=== PATIENT | male | born 1990 | race Caucasian/White ===

== ENCOUNTER → 2016-04-07 | Outpatient (CLI) | payer OTHER ==
[~2016-04-07] MED LIST: GABA600T PO; INSU-277; K-PHTAB PO; KETOC2%T TOPICAL; LEVEMIR SQ; MAGN500T5 PO; NORT75CA PO; NOVOLOGP2 SQ; TRAZ100T4 PO; [UNRECOGNIZED DRUG - SUPPLY]; syringes for insulin SQ
[2016-04-07 14:03] LABS: HEMOGLOBIN A1a 1.7 %; HEMOGLOBIN A1b 1.1 %; HEMOGLOBIN Ao 82.2 %; HEMOGLOBIN LA1C 1.8 %; HEMOGLOBIN P3 4.6 %
== END ==
LOC: CLAB 13:24
PROVIDERS: ATTEND Physician Assistant Medical
DX: E10.9 Type 1 diabetes mellitus without complications (principal)
CPT/HCPCS: 36415; 83036

== ENCOUNTER → 2016-10-10 | Outpatient (CLI) | payer OTHER ==
[~2016-10-10] MED LIST changes: +GLUCTES27; -TRAZ100T4 PO; +TRAZ100T6 PO
[2016-10-10 12:10] LABS: AUTOMATED NEUTROPHIL # 3.4 TH/MM3 (1.8-7.7); BASOPHIL % 0.4 % (0.0-2.0); EOSINOPHIL # 0.3 TH/MM3 (0-0.4); EOSINOPHIL % 4.8 % (0.0-4.0); HEMATOCRIT 40.6 % (39.0-51.0); HEMO FLAGS DIFF FINAL; LYMPH % 28.5 % (9.0-44.0); LYMPHOCYTE # 1.7 TH/MM3 (1.0-4.8); MEAN CORPUSCULAR HEMOGLOBIN 30.5 PG (27.0-34.0); MEAN CORPUSCULAR HGB CONC 33.5 % (32.0-36.0); MONO % 9.8 % (0.0-8.0); NEUT % 56.5 % (16.0-70.0); PLATELET COUNT 246 TH/MM3 (150-450); RED BLOOD COUNT 4.47 MIL/MM3 (4.50-5.90); RED CELL DISTRIBUTION WIDTH 13.4 % (11.6-17.2); WHITE BLOOD COUNT 6.1 TH/MM3 (4.0-11.0)
[2016-10-10 12:42] LABS: HDL CHOLESTEROL 56.5 MG/DL (40.0-60.0)
== END ==
LOC: CLAB 11:41
PROVIDERS: ATTEND Family Medicine
DX: E10.9 Type 1 diabetes mellitus without complications (principal); E78.1 Pure hyperglyceridemia; G62.9 Polyneuropathy, unspecified
CPT/HCPCS: 36415; 80061; 84443; 85025

== ENCOUNTER 2018-02-10 13:30 | Inpatient (IN) ==
[2018-02-10] MEDS ORDERED: Sod Chloride 0.9% Inj 1,000 ML IV.SIG SCH (14:00)
[2018-02-10 14:11] LABS: VBG Base Excess -8.1 mmol/L (-2-2); VBG Blood Gas Oxygen Content 18.4 Vol % (9.0-17.0); VBG PCO2 22 mmHG (44-48); VBG PH 7.46 (7.360-7.400); VBG PO2 45 mmHG (35-40)
[2018-02-10] MEDS ORDERED: Famotidine PF Inj 20 MG/2 ML Vial IV.PUSH ONE (14:12)
--- NOTE | 2018-02-10 14:12 | ED ---
HPI General Chief complaint: Diabetic Stated complaint: Type 1 Diabetic/N/V/D/Vomiting Blood x2days Time Seen by Provider: 02/10/18 13:41 Source: patient and family Limitations: other History of Present Illness HPI narrative: Patient is a 27-year-old male, past medical history significant for type 1 diabetes, who presents with complaint of generalized ill feeling over the last several days with nausea, vomiting, cough, shortness of breath. He states that after several episodes of vomiting and there is now some streaks of blood in it. No chest pain. No fever. No recent trauma. Patient is not forthcoming with information and when asked questions continuously points to his family member in the room. Later in his ED stay he admitted to low abdominal pain with watery, nonbloody diarrhea over the last 3 days associated with the vomiting. He states it began after eating bengali food. Onset (ago): day(s) Radiation: non-radiation Severity: moderate Quality: aching Relieving factors: none Exacerbating factors: none Associated symptoms: Reports loss of appetite, malaise, nausea/vomiting, shortness of breath and weakness Treatments prior to arrival: Reports none Related Data Home Medications Medication Instructions Recorded Confirmed gabapentin 1,200 mg PO TID 02/10/18 02/10/18 insulin aspart U-100 [Novolog 20 unit SUBCUT QAM 02/10/18 02/10/18 Flexpen U-100 Insulin] insulin detemir U-100 [Levemir 25 unit SUBCUT QAM 02/10/18 02/10/18 U-100 Insulin] insulin detemir U-100 [Levemir 25 unit SUBCUT QPM 02/10/18 02/10/18 U-100 Insulin] Allergies Allergy/AdvReac Type Severity Reaction Status Date / Time No Known Allergies Allergy Verified 02/10/18 14:32 Review of Systems ROS: all other systems reviewed are negative [facility] Social History Social History Second Hand Smoke Exposure: No Smoking Status: Never smoker How Often Do You Have a Drink Containing Alcohol: Never Recent Travel in [facility] within the Last 8 Weeks: No Recent Out of Country Travel within the Last 8 Weeks: No Exam Narrative Exam Narrative: GENERAL: Ill-appearing male actively vomiting emesis with small streaks of blood. SKIN: Focused skin assessment warm/dry. HEAD: Atraumatic. Normocephalic. EYES: Pupils equal and round. No scleral icterus. No injection or drainage. ENT: No nasal bleeding or discharge. Mucous membranes pink and dry. NECK: Trachea midline. No JVD. CARDIOVASCULAR: Regular rate and rhythm. No murmur appreciated. Intact and equal peripheral pulses. RESPIRATORY: No accessory muscle use. Clear to auscultation. Breath sounds equal bilaterally. Tachypneic. GASTROINTESTINAL: Abdomen soft, slight tenderness throughout, nondistended. Hepatic and splenic margins not palpable. MUSCULOSKELETAL: No obvious deformities. No clubbing. No cyanosis. No edema. NEUROLOGICAL: Awake and alert. No obvious cranial nerve deficits. Motor grossly within normal limits. Normal speech. PSYCHIATRIC: Unable to assess Course Consultations Consultation #1: I spoke with Dr Prince, axle bearing polisher chemical operations and training, whom recommended we check a repeat lactate and if downtrending, call the hospitalists for admission. Time: 16:13 Initial Documented Vital Signs Blood Pressure 143/72 H 02/10/18 13:38 Last Documented Vital Signs Temperature 98.1 F 02/10/18 14:00 Pulse Rate 92 H 02/10/18 17:26 Respiratory Rate 20 02/10/18 17:26 Blood Pressure 96/57 L 02/10/18 17:26 Pulse Oximetry 98 02/10/18 16:30 Medical Decision Making MDM Narrative Medical decision making narrative: Patient is a 27 yom who presents with complaint of generalized ill feeling with nausea, vomiting and diarrhea. He appears ill and dry on arrival and was given multiple antiemetics and both an NS and an LR bolus. Labs reveal an anion gap metabolic acidosis with an elevated delta gap (concerning for non-gap acidosis). His pH on VBG was actually 7.455 indicating a component of alkalosis. Lactate is elevated at 4 and he was empirically given antibiotics after blood cultures were drawn. CT did not reveal an acute process. I initially spoke with Dr Prince, axle bearing polisher whom thought this could be managed by the hospitalist. I was then called by Dr Camarena, hospitalist chemical operations and training (whom had spoken to Dr Prince) whom agreed to the admission. Medical Screen Exam Complete: Yes Emergency Medical Condition: Yes Differential Diagnosis Differential Diagnosis: Differential diagnosis includes but is not limited to influenza, DKA, dehydration, acute kidney injury, pneumonia. Medical Records Medical records reviewed: Yes I reviewed the patient's medical records. Lab Data Result diagrams: 02/10/18 13:45 02/10/18 13:45 Lab Results 02/10/18 02/10/18 02/10/18 Range/Units 13:45 13:45 13:45 CBC w Diff Auto diff final WBC 7.5 (4.0-11.0) th/mm3 RBC 5.01 (4.50-5.90) mil/mm3 Hgb 15.3 (13.0-17.0) gm/dL Hct 45.4 (39.0-51.0) % MCV 90.7 (80.0-100.0) fL MCH 30.5 (27.0-34.0) pg MCHC 33.6 (32.0-36.0) % RDW 12.5 (11.6-17.2) % Plt Count 242 (150-450) th/mm3 MPV 9.2 (7.0-11.0) fL Neut % (Auto) 85.4 H (16.0-70.0) % Lymph % (Auto) 7.8 L (9.0-44.0) % Hart % (Auto) 6.2 (0.0-8.0) % Eos % (Auto) 0.0 (0.0-4.0) % Baso % (Auto) 0.6 (0.0-2.0) % Neut # (Auto) 6.4 (1.8-7.7) th/mm3 Lymph # (Auto) 0.6 L (1.0-4.8) th/mm3 Hart # (Auto) 0.5 (0.0-0.9) th/mm3 Eos # (Auto) 0.0 (0.0-0.4) th/mm3 Baso # (Auto) 0.0 (0.0-0.2) th/mm3 WBC Differential . Differential Comment . Puncture Site Patient Temperature VBG pH (7.360-7.400) VBG pCO2 (44-48) mmHG VBG pO2 (35-40) mmHG VBG HCO3 (22-26) mmol/L VBG O2 Saturation (70-76) % VBG O2 Content (9.0-17.0) Vol % VBG Base Excess (-2-2) mmol/L VBG Carboxyhemoglobin (0-4) % VBG Methemoglobin (0-2) % Hemoglobin (12.0-16.0) G/DL O2 Delivery Device Inspired O2 % Critical Value Sodium 132 L (136-145) meq/L Potassium 4.1 (3.5-5.1) meq/L Chloride 98 (98-107) meq/L Carbon Dioxide 15.0 L (21.0-32.0) meq/L Anion Gap 19 H (5-15) meq/L BUN 21 H (7-18) mg/dL Creatinine 1.20 (0.60-1.30) mg/dL Estimated GFR 72 L (>89) mL/min POC Glucose (68-110) mg/dl Random Glucose 424 H (74-106) mg/dL Lactic Acid 4.6 H* (0.4-2.0) mmol/L Calcium 8.6 (8.5-10.1) mg/dL Total Bilirubin 0.9 (0.2-1.0) mg/dL AST 27 (15-37) U/L ALT 29 (12-78) U/L Alkaline Phosphatase 87 (45-117) U/L Total Protein 7.6 (6.4-8.2) g/dL Albumin 4.4 (3.4-5.0) g/dL Beta-Hydroxybutyric Acd 3.25 H (0.00-0.39) mmol/L Ur Collection Type Urine Color (Yellw/Straw) Urine Clarity (Clear) Urine pH (5.0-8.5) Ur Specific [place] (1.002-1.035) Urine Protein (Neg-Trace) mg/dL Urine Glucose (UA) (Negative) mg/dL Urine Ketones (Negative) mg/dL Urine Occult Blood (Negative) Urine Nitrate (Negative) Urine Bilirubin (Negative) Urine Urobilinogen (Less than 2) mg/dL Ur Leukocyte Esterase (Negative) Urine WBC (0-5) /hpf Ur Squamous Epith Cells (0-5) /hpf Amorphous Sediment (None) /hpf Micro UA Comment Ur Microscopic Review Urine Culture Comments Urine Collection Time hours 02/10/18 02/10/18 02/10/18 Range/Units 13:56 14:05 14:48 CBC w Diff WBC (4.0-11.0) th/mm3 RBC (4.50-5.90) mil/mm3 Hgb (13.0-17.0) gm/dL Hct (39.0-51.0) % MCV (80.0-100.0) fL MCH (27.0-34.0) pg MCHC (32.0-36.0) % RDW (11.6-17.2) % Plt Count (150-450) th/mm3 MPV (7.0-11.0) fL Neut % (Auto) (16.0-70.0) % Lymph % (Auto) (9.0-44.0) % Hart % (Auto) (0.0-8.0) % Eos % (Auto) (0.0-4.0) % Baso % (Auto) (0.0-2.0) % Neut # (Auto) (1.8-7.7) th/mm3 Lymph # (Auto) (1.0-4.8) th/mm3 Hart # (Auto) (0.0-0.9) th/mm3 Eos # (Auto) (0.0-0.4) th/mm3 Baso # (Auto) (0.0-0.2) th/mm3 WBC Differential Differential Comment Puncture Site Iv Patient Temperature 98.6 VBG pH 7.46 H (7.360-7.400) VBG pCO2 22 L (44-48) mmHG VBG pO2 45 H (35-40) mmHG VBG HCO3 15 L* (22-26) mmol/L VBG O2 Saturation 83 H (70-76) % VBG O2 Content 18.4 H (9.0-17.0) Vol % VBG Base Excess -8.1 L (-2-2) mmol/L VBG Carboxyhemoglobin 1.5 (0-4) % VBG Methemoglobin 1.2 (0-2) % Hemoglobin 15.8 (12.0-16.0) G/DL O2 Delivery Device Room air Inspired O2 21 % Critical Value Yes Sodium (136-145) meq/L Potassium (3.5-5.1) meq/L Chloride (98-107) meq/L Carbon Dioxide (21.0-32.0) meq/L Anion Gap (5-15) meq/L BUN (7-18) mg/dL Creatinine (0.60-1.30) mg/dL Estimated GFR (>89) mL/min POC Glucose 437 H 433 H (68-110) mg/dl Random Glucose (74-106) mg/dL Lactic Acid (0.4-2.0) mmol/L Calcium (8.5-10.1) mg/dL Total Bilirubin (0.2-1.0) mg/dL AST (15-37) U/L ALT (12-78) U/L Alkaline Phosphatase (45-117) U/L Total Protein (6.4-8.2) g/dL Albumin (3.4-5.0) g/dL Beta-Hydroxybutyric Acd (0.00-0.39) mmol/L Ur Collection Type Urine Color (Yellw/Straw) Urine Clarity (Clear) Urine pH (5.0-8.5) Ur Specific [place] (1.002-1.035) Urine Protein (Neg-Trace) mg/dL Urine Glucose (UA) (Negative) mg/dL Urine Ketones (Negative) mg/dL Urine Occult Blood (Negative) Urine Nitrate (Negative) Urine Bilirubin (Negative) Urine Urobilinogen (Less than 2) mg/dL Ur Leukocyte Esterase (Negative) Urine WBC (0-5) /hpf Ur Squamous Epith Cells (0-5) /hpf Amorphous Sediment (None) /hpf Micro UA Comment Ur Microscopic Review Urine Culture Comments Urine Collection Time hours 02/10/18 02/10/18 02/10/18 Range/Units 14:51 15:55 16:25 CBC w Diff WBC (4.0-11.0) th/mm3 RBC (4.50-5.90) mil/mm3 Hgb (13.0-17.0) gm/dL Hct (39.0-51.0) % MCV (80.0-100.0) fL MCH (27.0-34.0) pg MCHC (32.0-36.0) % RDW (11.6-17.2) % Plt Count (150-450) th/mm3 MPV (7.0-11.0) fL Neut % (Auto) (16.0-70.0) % Lymph % (Auto) (9.0-44.0) % Hart % (Auto) (0.0-8.0) % Eos % (Auto) (0.0-4.0) % Baso % (Auto) (0.0-2.0) % Neut # (Auto) (1.8-7.7) th/mm3 Lymph # (Auto) (1.0-4.8) th/mm3 Hart # (Auto) (0.0-0.9) th/mm3 Eos # (Auto) (0.0-0.4) th/mm3 Baso # (Auto) (0.0-0.2) th/mm3 WBC Differential Differential Comment Puncture Site Patient Temperature VBG pH (7.360-7.400) VBG pCO2 (44-48) mmHG VBG pO2 (35-40) mmHG VBG HCO3 (22-26) mmol/L VBG O2 Saturation (70-76) % VBG O2 Content (9.0-17.0) Vol % VBG Base Excess (-2-2) mmol/L VBG Carboxyhemoglobin (0-4) % VBG Methemoglobin (0-2) % Hemoglobin (12.0-16.0) G/DL O2 Delivery Device Inspired O2 % Critical Value Sodium (136-145) meq/L Potassium (3.5-5.1) meq/L Chloride (98-107) meq/L Carbon Dioxide (21.0-32.0) meq/L Anion Gap (5-15) meq/L BUN (7-18) mg/dL Creatinine (0.60-1.30) mg/dL Estimated GFR (>89) mL/min POC Glucose 484 H* (68-110) mg/dl Random Glucose (74-106) mg/dL Lactic Acid 4.5 H* (0.4-2.0) mmol/L Calcium (8.5-10.1) mg/dL Total Bilirubin (0.2-1.0) mg/dL AST (15-37) U/L ALT (12-78) U/L Alkaline Phosphatase (45-117) U/L Total Protein (6.4-8.2) g/dL Albumin (3.4-5.0) g/dL Beta-Hydroxybutyric Acd (0.00-0.39) mmol/L Ur Collection Type Clean catch Urine Color Straw (Yellw/Straw) Urine Clarity Clear (Clear) Urine pH 6.0 (5.0-8.5) Ur Specific [place] 1.010 (1.002-1.035) Urine Protein Negative (Neg-Trace) mg/dL Urine Glucose (UA) 1000 or greater H (Negative) mg/dL Urine Ketones 80 or greater H (Negative) mg/dL Urine Occult Blood Negative (Negative) Urine Nitrate Negative (Negative) Urine Bilirubin Negative (Negative) Urine Urobilinogen 0.2 (Less than 2) mg/dL Ur Leukocyte Esterase Negative (Negative) Urine WBC 0-5 (0-5) /hpf Ur Squamous Epith Cells 0-5 (0-5) /hpf Amorphous Sediment Few H (None) /hpf Micro UA Comment Culture not ind Ur Microscopic Review Microscopic reviewed Urine Culture Comments Culture not ind Urine Collection Time 1450 hours 02/10/18 02/10/18 02/10/18 Range/Units 16:59 17:44 18:49 CBC w Diff WBC (4.0-11.0) th/mm3 RBC (4.50-5.90) mil/mm3 Hgb (13.0-17.0) gm/dL Hct (39.0-51.0) % MCV (80.0-100.0) fL MCH (27.0-34.0) pg MCHC (32.0-36.0) % RDW (11.6-17.2) % Plt Count (150-450) th/mm3 MPV (7.0-11.0) fL Neut % (Auto) (16.0-70.0) % Lymph % (Auto) (9.0-44.0) % Hart % (Auto) (0.0-8.0) % Eos % (Auto) (0.0-4.0) % Baso % (Auto) (0.0-2.0) % Neut # (Auto) (1.8-7.7) th/mm3 Lymph # (Auto) (1.0-4.8) th/mm3 Hart # (Auto) (0.0-0.9) th/mm3 Eos # (Auto) (0.0-0.4) th/mm3 Baso # (Auto) (0.0-0.2) th/mm3 WBC Differential Differential Comment Puncture Site Patient Temperature VBG pH (7.360-7.400) VBG pCO2 (44-48) mmHG VBG pO2 (35-40) mmHG VBG HCO3 (22-26) mmol/L VBG O2 Saturation (70-76) % VBG O2 Content (9.0-17.0) Vol % VBG Base Excess (-2-2) mmol/L VBG Carboxyhemoglobin (0-4) % VBG Methemoglobin (0-2) % Hemoglobin (12.0-16.0) G/DL O2 Delivery Device Inspired O2 % Critical Value Sodium (136-145) meq/L Potassium (3.5-5.1) meq/L Chloride (98-107) meq/L Carbon Dioxide (21.0-32.0) meq/L Anion Gap (5-15) meq/L BUN (7-18) mg/dL Creatinine (0.60-1.30) mg/dL Estimated GFR (>89) mL/min POC Glucose 299 H 265 H 238 H (68-110) mg/dl Random Glucose (74-106) mg/dL Lactic Acid (0.4-2.0) mmol/L Calcium (8.5-10.1) mg/dL Total Bilirubin (0.2-1.0) mg/dL AST (15-37) U/L ALT (12-78) U/L Alkaline Phosphatase (45-117) U/L Total Protein (6.4-8.2) g/dL Albumin (3.4-5.0) g/dL Beta-Hydroxybutyric Acd (0.00-0.39) mmol/L Ur Collection Type Urine Color (Yellw/Straw) Urine Clarity (Clear) Urine pH (5.0-8.5) Ur Specific [place] (1.002-1.035) Urine Protein (Neg-Trace) mg/dL Urine Glucose (UA) (Negative) mg/dL Urine Ketones (Negative) mg/dL Urine Occult Blood (Negative) Urine Nitrate (Negative) Urine Bilirubin (Negative) Urine Urobilinogen (Less than 2) mg/dL Ur Leukocyte Esterase (Negative) Urine WBC (0-5) /hpf Ur Squamous Epith Cells (0-5) /hpf Amorphous Sediment (None) /hpf Micro UA Comment Ur Microscopic Review Urine Culture Comments Urine Collection Time hours Imaging Data Attestation: I personally reviewed and interpreted this imaging study as follows : My impression: No acute cardiopulmonary process. Radiologist's impression: Chest X-Ray 02/10/18 13:51 CONCLUSION: No acute cardiopulmonary process. Abdomen/Pelvis CT 02/10/18 15:02 CONCLUSION: Hepatic steatosis. ECG Data EKG Prior to Arrival: No Attestation: I personally reviewed and interpreted this ECG as follows: (Sinus rhythm at a rate of [address] or T wave changes. Normal QT interval.) Discharge Plan Discharge Disposition Patient Disposition: ED Admit(ED Internal Use Only) Discharge Condition Condition: Serious Discharge Order Discharge Orders: ED Use Only Admit Order (Routine); Ordered 02/10/18 Ordered By: Tia Solis Discharge Details Diagnosis: DKA (diabetic ketoacidoses), Acute dehydration Physicians Team ED Provider: Tia Solis Primary Care Provider: Primary Care Akanksha Judge Attending Provider: Sheri Menezes Status ED Status: Left Department Discharge Information Discharge Date/Time: 02/10/18 17:50
[2018-02-10 14:21] LABS: Baso % (Auto) 0.6 % (0.0-2.0); Hematocrit 45.4 % (39.0-51.0); Hemoglobin 15.3 gm/dL (13.0-17.0); Lymph # (Auto) 0.6 th/mm3 (1.0-4.8); Lymph % (Auto) 7.8 % (9.0-44.0); Mean Corpuscular HGB Conc 33.6 % (32.0-36.0); Mean Corpuscular Hemoglobin 30.5 pg (27.0-34.0); Mean Corpuscular Volume 90.7 fL (80.0-100.0); Mean Platelet Volume 9.2 fL (7.0-11.0); Mono # (Auto) 0.5 th/mm3 (0.0-0.9); Mono % (Auto) 6.2 % (0.0-8.0); Neut # (Auto) 6.4 th/mm3 (1.8-7.7); Neut % (Auto) 85.4 % (16.0-70.0); Platelet Count 242 th/mm3 (150-450); Red Blood Count 5.01 mil/mm3 (4.50-5.90); Red Cell Distribution Width 12.5 % (11.6-17.2); White Blood Count 7.5 th/mm3 (4.0-11.0)
[2018-02-10 14:31] LABS: Chloride 98 meq/L (98-107); Potassium 4.1 meq/L (3.5-5.1); Sodium 132 meq/L (136-145)
[2018-02-10 14:34] LABS: Calcium 8.6 mg/dL (8.5-10.1)
[2018-02-10 14:35] LABS: Albumin 4.4 g/dL (3.4-5.0); Anion Gap 19 meq/L (5-15)
--- NOTE | 2018-02-10 14:54 | XR ---
EXAM DATE: 02/10/2018 2:51 PM EST AGE/SEX: 27 years / Male INDICATIONS: Cough, vomiting CLINICAL DATA: This is the patient's initial encounter. Patient reports that signs and symptoms have been present for 2 days and indicates a pain score of 0/10. MEDICAL/SURGICAL HISTORY: Diabetes mellitus type I. None. [place] [facility] [place]. . FINDINGS: A single AP view of the chest demonstrates the lungs to be symmetrically aerated without evidence of mass, infiltrate or effusion. The cardiomediastinal contours are unremarkable. Osseous structures a re intact. CONCLUSION: No acute cardiopulmonary process. Electronically signed by: Arnoldo Cuevas MD 02/10/2018 2:53 PM EST
[2018-02-10 14:55] LABS: Alanine Aminotransferase 29 U/L (12-78); Alkaline Phosphatase 87 U/L (45-117); Aspartate Aminotransferase 27 U/L (15-37); Beta Hydroxybutyric Acid 3.25 mmol/L (0.00-0.39); Blood Urea Nitrogen 21 mg/dL (7-18); Glomerular Filtration Rate 72 mL/min (>89); Glucose,Random 424 mg/dL (74-106); Total Protein 7.6 g/dL (6.4-8.2)
[2018-02-10 15:00] LABS: Bilirubin,Urine Negative (Negative); Clarity,Urine Clear (Clear); Leukocyte Esterase,Urine Negative (Negative); Nitrite,Urine Negative (Negative); Urobilinogen,Urine 0.2 mg/dL (Less than 2)
[2018-02-10 15:02] LABS: Color,Urine Straw (Yellw/Straw)
[2018-02-10] MEDS ORDERED: Potassium Chlor 20 mEq Premix 20 MEQ/100 ML PIGGYBACK IV.SIG PRN ×5 (15:03)
[2018-02-10] MEDS ORDERED: Potassium Chlor 40 mEq Premix 40 MEQ/100 ML PIGGYBACK IV.SIG PRN ×2 (15:03)
[2018-02-10] MEDS ORDERED: Insulin Regular (For Infusion) 100 UNIT in Sodium Chlor 0.9% Inj 99 ML IV.CONT PRN (15:03)
[2018-02-10] MEDS ORDERED: Sodium Phosphate Inj 15 MMOL in Sodium Chlor 0.9% Inj 100 ML IV.SIG PRN (15:03)
[2018-02-10 15:13] LABS: Collection Time,Urine 1450 hours
[2018-02-10] MEDS ORDERED: Piperacil/Tazo 4.5 GM Premix 4.5 GM/100 ML BAG IV.SIG ONE (15:13)
[2018-02-10] MEDS ORDERED: Vancomycin Inj 1,000 MG in Sodium Chlor 0.9% Inj 250 ML IV.SIG ONE (15:13)
[2018-02-10 15:14] LABS: Amorphous Sediment,Urine Few /hpf; Squamous Epithelial Cell,Urine 0-5 /hpf (0-5); WBC,Urine 0-5 /hpf (0-5)
--- NOTE | 2018-02-10 15:50 | CT ---
EXAM DATE: 02/10/2018 3:43 PM EST AGE/SEX: 27 years / Male INDICATIONS: Vomiting and non specific abdominal pain for three days. CLINICAL DATA: This is the patient's initial encounter. Patient reports that signs and symptoms have been present for 3 days and indicates a pain score of 10/10. MEDICAL/SURGICAL HISTORY: Diabetes mellitus type I. None. ORAL CONTRAST: No oral contrast ingested. RADIATION DOSE: 7.21 CTDI (mGy) COMPARISON: No prior exams available for comparison. TECHNIQUE: Multiple contiguous axial images were obtained through the abdomen and pelvis following b olus infusion of 95 ml Omnipaque 350 (iohexol) nonionic water-soluble contrast as a single exam dos e. No oral contrast ingested. Using automated exposure control and adjustment of the mA and/or kV ac cording to patient size, radiation dose was kept as low as reasonably achievable to obtain optimal di agnostic quality images. DICOM format image data is available electronically for review and comparis on. FINDINGS: Lower Lungs: The visualized lower lungs are clear. Liver: There is diffuse decreased attenuation to the liver. No focal hepatic lesions are seen. The ga llbladder is unremarkable. Spleen: Homogeneous density without enlargement. Pancreas: Unremarkable without mass or calcification. Kidneys: Normal in size and shape. No evidence of mass or hydronephrosis. Adrenal Glands: Unremarkable. Aorta: The aorta and proximal iliac vessels are grossly unremarkable without aneurysmal dilation. Bowel/Mesentery: The bowel loops are grossly unremarkable. The cecum and sigmoid colon have a normal configuration. Appears to be the appendix is identified and appears normal. Abdominal Wall: Intact. Retroperitoneum: No evidence of adenopathy in the retrocrural, para-aortic, or deep pelvic regions. Bladder: Contours are smooth. Reproductive Organs: No abnormal masses or calcifications seen. Inguinal: The inguinal region is unremarkable without evidence of adenopathy. Bony Structures: Unremarkable. CONCLUSION: Hepatic steatosis. Electronically signed by: Arnoldo Cuevas MD 02/10/2018 3:49 PM EST
[2018-02-10] MEDS: Potassium Chlor 20 mEq Premix 20 MEQ/100 ML PIGGYBACK IV.SIG PRN ×2 (16:00→18:21)
[2018-02-10] MEDS: Sod Chloride 0.9% Inj 1,000 ML IV.CONT SCH ×2 (16:15→20:38)
[2018-02-10] MEDS ORDERED: Insulin Human-R 100 UNIT/100ML 100 UNIT/100 ML BAG IV.CONT ONE (16:17)
[2018-02-10] MEDS ORDERED: DC previous DKA orders (HMC 1917) OTHER ONE ×2 (16:17→20:40)
[2018-02-10] MEDS ORDERED: DC Insulin drip 2 hrs post basal insulin dose OTHER ONE ×2 (16:17→20:40)
[2018-02-10] MEDS ORDERED: Bisacodyl 10 MG Supp RECTAL PRN (16:17)
[2018-02-10] MEDS ORDERED: Acetaminophen 325 MG Tablet PO PRN (16:17)
[2018-02-10] MEDS ORDERED: Dextrose 50% in Water 50 ML Vial IV.PUSH PRN ×2 (16:17→20:40)
[2018-02-10] MEDS ORDERED: Heparin - SQ 10,000 UNITS/ML Vial SQ SCH (16:30)
[2018-02-10] MEDS: Morphine Sulfate Inj 2 MG/ML Vial IV.PUSH PRN ×2 (17:11→21:43)
[2018-02-10] MEDS: Dextrose 5%/NaCl 0.45% Inj 1,000 ML IV.CONT SCH (17:20)
--- NOTE | 2018-02-10 17:36 | P.HPIM ---
History of Present Illness Primary Care Physician: No Primary Care Physician Chief Complaint: vomiting History of Present Illness: 27-year-old insulin-dependent diabetic presents with intractable nausea vomiting for 3 days diarrhea. Patient states he ate something bad on Sunday developed diarrhea and had nausea and vomiting, he was not able to take his insulin or eat or drink hold down any liquids, he denies any fever chills or other illness. He states today he was vomiting so much that he started to vomit blood, he is complaining of left lower abdominal pain, cramping, intermittent, moderate severe, denies any melena or blood in stools. He was found to be in DKA in the emergency room with blood sugar over 400, bicarb of 15 and anion gap of 19. He is not even able to hold down clear liquids. Prior to this he has been doing very well controlling his sugars without frequent hospitalizations for DKA, normally per his mother. PMhx: Insulin-dependent diabetes, cataracts, diabetic peripheral neuropathy PSXhx: Cataracts SOChx: Denies tobacco, denies alcohol, admits to daily THC use FAMhx: Negative for premature diabetes stroke DC or cancer Inpatient Certification Inpatient Certification: I certify that the inpatient services were ordered in accordance with Medicare regulations governing the order. This includes certification that hospital inpatient services are reasonable and necessary and in the case of services not specified as inpatient-only under 42 CFR 419.22(n), that they are appropriately provided as inpatient services in accordance to with the 2-midnight benchmark under 43 CFR 412.3(e) Estimated Total Length of Stay (Days): 3 Plans for Post Hospital Care: Home Review of Systems Review of Systems: all other systems reviewed are negative [facility] Social History Social History Second Hand Smoke Exposure: No Smoking Status: Never smoker How Often Do You Have a Drink Containing Alcohol: Never Recent Travel in [place] within the Last 8 Weeks: No Recent Out of Country Travel within the Last 8 Weeks: No Substance Abuse Detail Marijuana: Substance Use Status: Active Route Used 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 Reason for Use: Calm Down Immunization History Tetanus Immunization: Unsure Medications and Allergies Allergies Allergy/AdvReac Type Severity Reaction Status Date / Time No Known Allergies Allergy Verified 02/10/18 14:32 Home Medications Medication Instructions Recorded Confirmed Type gabapentin 1,200 mg PO TID 02/10/18 02/10/18 History insulin aspart U-100 [Novolog 20 unit SUBCUT QAM 02/10/18 02/10/18 History Flexpen U-100 Insulin] insulin detemir U-100 [Levemir 25 unit SUBCUT QAM 02/10/18 02/10/18 History U-100 Insulin] insulin detemir U-100 [Levemir 25 unit SUBCUT QPM 02/10/18 02/10/18 History U-100 Insulin] Active Medications: Active Medications Acetaminophen (Tylenol) 650 mg PO Q6H PRN PRN Reason: PAIN 1-10 AND/OR FEVER >101F Al Hydroxide/Mg Hydroxide (Milk Of Mary Ellen Salinas) 30 ml PO Q12H PRN PRN Reason: Mild Constipation Albuterol (Duoneb Neb (Prn)) 1 ampul NEB Q2HR NEB PRN PRN Reason: WHEEZING Bisacodyl (Dulcolax Supp) 10 mg RECTAL DAILY PRN PRN Reason: SEVERE CONSITIPATION Chlorhexidine Gluconate (Chlorhexidine 2% Cloth) 3 pack TOPICAL DAILY@0400 REPLACED BY [facility] Stop: 02/16/18 03:59 Chlorhexidine Gluconate (Chlorhexidine 2% Cloth) 3 pack TOPICAL DAILY@0400 PRN PRN Reason: Extra cloth needed Stop: 02/16/18 03:59 Dextrose (D50w Vial) 50 ml IV.PUSH UNSCH PRN PRN Reason: PER HYPOGLYCEMIA PROTOCOL Dextrose (D50w Vial) 50 ml IV.PUSH UNSCH PRN PRN Reason: PER HYPOGLYCEMIA PROTOCOL Glucagon (Glucagon Inj) 1 mg OTHER PRN PRN PRN Reason: for Hypoglycemia Protocol Heparin Sodium (Porcine) (Heparin Inj) 5,000 units SQ Q12H REPLACED BY [facility] Last Admin: 02/10/18 16:56 Dose: 5,000 units Dextrose/Sodium Chloride (D5w/Normal Saline Inj) 1,000 mls @ 200 mls/hr IV.CONT .Q5H REPLACED BY [facility] Insulin Human Regular 100 unit (/ Sodium Chloride) 100 mls @ 8 mls/hr IV.CONT TITRATE PRN; Protocol PRN Reason: See protocol Potassium Chloride (Kcl 40 Meq Premix Inj) 40 meq in 100 mls @ 100 mls/hr IV.SIG Q1H PRN PRN Reason: for Initial K+ ONLY < 3.5 Potassium Chloride (Kcl 40 Meq Premix Inj) 40 meq in 100 mls @ 50 mls/hr IV.SIG Q2H PRN PRN Reason: for Subsequent K+ < 3.5 Potassium Chloride (Kcl 20 Meq Premix Inj) 20 meq in 100 mls @ 100 mls/hr IV.SIG Q1H PRN PRN Reason: for K+ 3.5 to 4.4 Last Admin: 02/10/18 16:13 Dose: 100 mls/hr Potassium Chloride (Kcl 20 Meq Premix Inj) 20 meq in 100 mls @ 100 mls/hr IV.SIG Q1H PRN PRN Reason: for K+ 4.5 to 5 Potassium Chloride (Kcl 20 Meq Premix Inj) 20 meq in 100 mls @ 50 mls/hr IV.SIG Q2H PRN PRN Reason: for Initial K+ ONLY < 3.5 Potassium Chloride (Kcl 20 Meq Premix Inj) 20 meq in 100 mls @ 50 mls/hr IV.SIG Q2H PRN PRN Reason: for Subsequent K+ < 3.5 Potassium Chloride (Kcl 20 Meq Premix Inj) 20 meq in 100 mls @ 50 mls/hr IV.SIG Q2H PRN PRN Reason: for K+ 4.5 to 5 Sodium Phosphate 15 mmol/ (Sodium Chloride) 105 mls @ 25 mls/hr IV.SIG UNSCH PRN PRN Reason: for Phosphate Level < 1.0 Sodium Chloride (Ns Inj) 1,000 mls @ 250 mls/hr IV.CONT .Q4H [facility] Last Admin: 02/10/18 16:15 Dose: 250 mls/hr Potassium Chloride (Kcl 20 Meq Premix Inj) 20 meq in 100 mls @ 50 mls/hr IV.SIG Q2H PRN PRN Reason: for K+ 3.5 to 4.4 Dextrose/Sodium Chloride (D5w/1/2 Ns Inj) 1,000 mls @ 75 mls/hr IV.CONT .[id number] [facility] Lactulose (Lactulose Liq) 30 ml PO DAILY PRN PRN Reason: SEVERE CONSITIPATION Morphine Sulfate (Morphine Inj) 1 mg IV.PUSH Q4H PRN PRN Reason: PAIN SCALE 6 TO 10 Last Admin: 02/10/18 17:11 Dose: 1 mg Ondansetron HCl (Zofran Inj) 4 mg IV.PUSH Q6H PRN PRN Reason: NAUSEA OR VOMITING Pantoprazole Sodium (Protonix Inj) 40 mg IV.PUSH Q12H [facility] Senna/Docusate Sodium (Xochitl-Colace) 1 tab PO BID [facility] Sennosides (Senokot) 17.2 mg PO Q12H PRN PRN Reason: Moderate Constipation Sodium Bicarbonate (Sodium Bicarbonate 8.4% Inj) 50 meq IV.PUSH UNSCH PRN PRN Reason: for pH 6.9 to 7.0 Sodium Bicarbonate (Sodium Bicarbonate 8.4% Inj) 100 meq IV.PUSH UNSCH PRN PRN Reason: for pH less than 6.9 Sodium Chloride (Ns Flush) 2 ml IV.FLUSH PRN PRN PRN Reason: FLUSH AFTER USING IV ACCESS Sodium Chloride (Ns Flush) 2 ml IV.FLUSH BID [place] Sodium Chloride (Ns Flush) 2 ml IV.FLUSH PRN PRN PRN Reason: FLUSH AFTER USING IV ACCESS Physical Exam Vital signs: Last Vital Signs Temp 98.1 F 02/10/18 14:00 Pulse 90 02/10/18 16:30 Resp 22 02/10/18 16:30 BP 137/60 02/10/18 16:30 Pulse Ox 98 02/10/18 16:30 Intake & Output 02/08/18 02/09/18 02/10/18 02/11/18 06:59 06:59 06:59 06:59 Intake Total 2100 / 2100 Output Total 1450 / 1450 Balance 650 / 650 Weight 81.5 kg Narrative: GEN thin well-developed well-nourished 27-year-old white male awake alert oriented to person time and place, pleasant in no acute distress but very anxious HEENT normocephalic atraumatic, Pupils postop , sclerae anicteric, extraocular motion intact, mucosa is dry without thrush, posterior pharynx clear without exudate no gum lip dental lesions noted NECK supple no JVD trachea midline thyroid smooth not enlarged ANT CHEST WALL without mass or tenderness to palpation HEART S1-S2 regular without murmur gallops or clicks, tachycardic LUNGS clear to auscultation without wheeze rales or rhonchi , full symmetric expansion BACK exam is no CVA tenderness or mass ABDOMEN soft nondistended positive bowel sounds no guarding rebound rigidity moderate tender bilateral lower quadrant greater on the left LYMPH NODES no cervical, axillary or inguinal adenopathy noted EXTREMITIES no clubbing cyanosis or significant edema, peripheral pulses palpable +2 tender to palpation, no calf tenderness NEUROLOGIC cranial nerves II through XII appear grossly intact, moving extremities with full symmetric strength, no clonus rigidity noted SKIN warm and dry with decreased turgor, no other rash or sores noted, no mottling, warm to touch Results Labs CBC & Chem 7: 02/10/18 13:45 02/10/18 13:45 Imaging Impressions Chest X-Ray 02/10/18 13:51 CONCLUSION: No acute cardiopulmonary process. Abdomen/Pelvis CT 02/10/18 15:02 CONCLUSION: Hepatic steatosis. Caprini VTE Risk Assessment Caprini VTE Risk Assessment: Moderate/High Risk (score >= 2) Caprini Risk Assessment Model: Point Value = 1 Point Value = 2 Point Value = 3 Point Value = 5 Age 41-60 Minor surgery BMI > 25 kg/m2 Swollen legs Varicose veins or History of unexplained or recurrent spontaneous Oral contraceptives or hormone replacement Sepsis (< 1 month) Serious lung disease, including pneumonia (< 1 month) Abnormal pulmonary function Acute myocardial infarction Congestive heart failure (< 1 month) History of inflammatory bowel disease Medical patient at bed rest Age 61-74 Arthroscopic surgery Major open surgery (> 45 min) Laparoscopic surgery (> 45 min) Malignancy Confined to bed (> 72 hours) Immobilizing plaster cast Central venous access Age >= 75 History of VTE Family history of VTE Factor V Leiden Prothrombin [id number] Lupus anticoagulant Anticardiolipin antibodies Elevated serum homocysteine Heparin-induced thrombocytopenia Other congenital or acquired thrombophilia Stroke (< 1 month) Elective arthroplasty Hip, pelvis, or leg fracture Acute spinal cord injury (< 1 month) Prophylaxis Regimen: Total Risk Factor Score Risk Level Prophylaxis Regimen 0-1 Low Early ambulation 2 Moderate Order ONE of the following: *Sequential Compression Device (SCD) *Heparin 5000 units SQ BID 3-4 Higher Order ONE of the following medications: *Heparin 5000 units SQ TID *Enoxaparin/Lovenox 40 mg SQ daily (WT < 150 kg, CrCl > 30 mL/min) *Enoxaparin/Lovenox 30 mg SQ daily (WT < 150 kg, CrCl > 10-29 mL/min) *Enoxaparin/Lovenox 30 mg SQ BID (WT < 150 kg, CrCl > 30 mL/min) AND/OR *Sequential Compression Device (SCD) 5 or more Highest Order ONE of the following medications: *Heparin 5000 units SQ TID (Preferred with Epidurals) *Enoxaparin/Lovenox 40 mg SQ daily (WT < 150 kg, CrCl > 30 mL/min) *Enoxaparin/Lovenox 30 mg SQ daily (WT < 150 kg, CrCl > 10-29 mL/min) *Enoxaparin/Lovenox 30 mg SQ BID (WT < 150 kg, CrCl > 30 mL/min) AND *Sequential Compression Device (SCD) Assessment and Plan Plan DKA - w lactic acidosos from severe dehydration - cont ivf, insulin gtt, icu monitoring, npo for now HEMATEMESIS - likely due to intractable nv, iv protonix, npo, monitor hh ACUTE GASTROENTERITIS - infecious/viral vs [place] - no evidence of infection hold abx, cont supportive care, antiemetics, fluids , stool studies if diarrhea persists, ct scan normal, iv protonix. IDDM - insulin gtt, diet when DM PERIPHERAL NEUROPATHY - resume home neurontin when stable dvt prophylaxis - scd, dispo - home 1-2 days pending clinical course.
[2018-02-10] MEDS: Pantoprazole Inj 40 MG Vial IV.PUSH SCH (18:10)
[2018-02-10] MEDS: Dextrose 5%/NaCl 0.9% Inj 1,000 ML IV.CONT SCH ×2 (19:54→22:12)
[2018-02-10 20:05] LABS: Hematocrit 41.3 % (39.0-51.0); Hemoglobin 14.2 gm/dL (13.0-17.0)
[2018-02-10 20:20] LABS: Calcium 7.9 mg/dL (8.5-10.1); Carbon Dioxide 20.9 meq/L (21.0-32.0); Potassium 4.2 meq/L (3.5-5.1)
[2018-02-10] MEDS ORDERED: Insulin Detemir Inj 1,000 UNIT/10 ML Vial SQ ONE (20:48)
[2018-02-10] MEDS ORDERED: Famotidine 20 MG Tablet PO SCH (21:00)
[2018-02-10] MEDS: Senna/Docusate Sodium 8.6/50 MG Tablet PO SCH (22:16)
[2018-02-11] MEDS: Insulin NovoLOG Aspart Correctional Sugar Inj SQ SCH ×3 (00:07→12:19)
[2018-02-11] MEDS: Morphine Sulfate Inj 2 MG/ML Vial IV.PUSH PRN ×2 (02:00→09:43)
[2018-02-11 02:26] LABS: Potassium 3.6 meq/L (3.5-5.1)
[2018-02-11 02:29] LABS: Calcium 7.6 mg/dL (8.5-10.1)
[2018-02-11] MEDS ORDERED: Chlorhexidine Gluconate 2% 1 Pack (2 Cloths) TOPICAL PRN (04:00)
[2018-02-11] MEDS ORDERED: Chlorhexidine Gluconate 2% 1 Pack (2 Cloths) TOPICAL SCH (04:00)
[2018-02-11 04:45] LABS: Baso % (Auto) 0.2 % (0.0-2.0); Hematocrit 40.3 % (39.0-51.0); Hemoglobin 13.8 gm/dL (13.0-17.0); Lymph # (Auto) 1.6 th/mm3 (1.0-4.8); Lymph % (Auto) 14.2 % (9.0-44.0); Mean Corpuscular HGB Conc 34.2 % (32.0-36.0); Mean Corpuscular Hemoglobin 31.1 pg (27.0-34.0); Mean Corpuscular Volume 91.1 fL (80.0-100.0); Mean Platelet Volume 8.1 fL (7.0-11.0); Mono # (Auto) 1.4 th/mm3 (0.0-0.9); Mono % (Auto) 12.6 % (0.0-8.0); Neut # (Auto) 8.4 th/mm3 (1.8-7.7); Platelet Count 196 th/mm3 (150-450); Red Blood Count 4.43 mil/mm3 (4.50-5.90); Red Cell Distribution Width 12.6 % (11.6-17.2); White Blood Count 11.4 th/mm3 (4.0-11.0)
[2018-02-11] MEDS: Pantoprazole Inj 40 MG Vial IV.PUSH SCH (06:10)
[2018-02-11] MEDS: Dextrose 5%/NaCl 0.45% Inj 1,000 ML IV.CONT SCH (06:43)
[2018-02-11] MEDS ORDERED: Insulin Detemir Inj 1,000 UNIT/10 ML Vial SQ SCH ×4 (09:00→18:00)
[2018-02-11 09:03] LABS: Chloride 107 meq/L (98-107); Potassium 3.4 meq/L (3.5-5.1); Sodium 138 meq/L (136-145)
[2018-02-11 09:05] LABS: Calcium 7.5 mg/dL (8.5-10.1)
[2018-02-11 09:06] LABS: Anion Gap 7 meq/L (5-15); Blood Urea Nitrogen 16 mg/dL (7-18); Carbon Dioxide 23.7 meq/L (21.0-32.0); Glucose,Random 101 mg/dL (74-106)
[2018-02-11 09:09] LABS: Glomerular Filtration Rate Greater Than 89 mL/min (>89)
[2018-02-11] MEDS ORDERED: Influenza (Quadrivalent) Vaccine 0.5 ML Syringe IM ONE (11:00)
[2018-02-11] MEDS: Senna/Docusate Sodium 8.6/50 MG Tablet PO SCH (12:22)
[2018-02-11] MEDS ORDERED: INSULIN ASPART SQ SCH (13:15)
--- NOTE | 2018-02-11 14:51 | P.DS ---
DS: Providers Date of admission: 02/10/18 16:29 Primary care physician: No Primary Care Physician Brief History from admission: 27-year-old insulin-dependent diabetic presents with intractable nausea vomiting for 3 days diarrhea. Patient states he ate something bad on Sunday developed diarrhea and had nausea and vomiting, he was not able to take his insulin or eat or drink hold down any liquids, he denies any fever chills or other illness. He states today he was vomiting so much that he started to vomit blood, he is complaining of left lower abdominal pain, cramping, intermittent, moderate severe, denies any melena or blood in stools. He was found to be in DKA in the emergency room with blood sugar over 400, bicarb of 15 and anion gap of 19. He is not even able to hold down clear liquids. Prior to this he has been doing very well controlling his sugars without frequent hospitalizations for DKA, normally per his mother. PMhx: Insulin-dependent diabetes, cataracts, diabetic peripheral neuropathy PSXhx: Cataracts SOChx: Denies tobacco, denies alcohol, admits to daily THC use FAMhx: Negative for premature diabetes stroke [place] or cancer ADMITTING DIAGNOSIS: DKA DISCHARGE DIAGNOSIS: DKA HEMATEMASIS ACUTE GASTROENTERITIS IDDM PERIPHERAL NEUROPATHY DS: Summary Patient was admitted to the icu and continued on heparin gtt and ivf. His anion gap closed and he was transitioned to sub cutaneous insulin. He had no further episodes of hematemasis and was tolerating a diet. Hematemasis was felt to be due to intractable retching/vomiting, and he had no further symptoms or drop in HH. Patient was clinically stable for discharge home and was instructed at length re compliance with medications diet activity and close follow up w pcp. Time Spent with Patient Total time spent providing and/or coordinating discharge services: Greater than 30 minutes Status at Discharge Functional status at discharge: independent ambulation Overall status at discharge: patient is progressing back to baseline Quality: VTE Deep Vein Thrombosis/Pulmonary Embolism Present on Admission: No Exam Narrative Exam Narrative: thin wdwn w m aaox3 nad heart s1s2 reg lungs clear no wrr abd soft nondt pos bs no mass nontender ext no edema, no calf tenderness pulses palp +3 Results Labs on day of discharge: Labs from last 24 hours 02/11/18 02/11/18 02/11/18 11:51 08:15 05:48 CBC w Diff WBC RBC Hgb Hct MCV MCH MCHC RDW Plt Count MPV Neut % (Auto) Lymph % (Auto) [place] % (Auto) Eos % (Auto) Baso % (Auto) Neut # (Auto) Lymph # (Auto) [place] # (Auto) Eos # (Auto) Baso # (Auto) WBC Differential Differential Comment Sodium 138 Potassium 3.4 L Chloride 107 Carbon Dioxide 23.7 Anion Gap 7 BUN 16 Creatinine 0.87 Estimated GFR Greater than 89 POC Glucose 104 75 Random Glucose 101 Lactic Acid Calcium 7.5 L Total Bilirubin AST ALT Alkaline Phosphatase Total Protein Beta-Hydroxybutyric Acd Ur Collection Type Urine Color Urine Clarity Urine pH Ur Specific [place] Urine Protein Urine Glucose (UA) Urine Ketones Urine Occult Blood Urine Nitrate Urine Bilirubin Urine Urobilinogen Ur Leukocyte Esterase Urine WBC Ur Squamous Epith Cells Amorphous Sediment Micro UA Comment Ur Microscopic Review Urine Culture Comments Urine Collection Time Nasal Screen MRSA (PCR) 02/11/18 02/11/18 02/10/18 04:18 02:11 23:56 CBC w Diff Auto diff final WBC 11.4 H D RBC 4.43 L Hgb 13.8 Hct 40.3 MCV 91.1 MCH 31.1 MCHC 34.2 RDW 12.6 Plt Count 196 MPV 8.1 Neut % (Auto) 73.0 H Lymph % (Auto) 14.2 [place] % (Auto) 12.6 H Eos % (Auto) 0.0 Baso % (Auto) 0.2 Neut # (Auto) 8.4 H Lymph # (Auto) 1.6 [place] # (Auto) 1.4 H Eos # (Auto) 0.0 Baso # (Auto) 0.0 WBC Differential . Differential Comment . Sodium 139 Potassium 3.6 Chloride 107 Carbon Dioxide 21.0 Anion Gap 11 BUN 18 Creatinine 1.10 Estimated GFR 80 L POC Glucose 145 H Random Glucose 110 H Lactic Acid Calcium 7.6 L Total Bilirubin AST ALT Alkaline Phosphatase Total Protein Beta-Hydroxybutyric Acd Ur Collection Type Urine Color Urine Clarity Urine pH Ur Specific [place] Urine Protein Urine Glucose (UA) Urine Ketones Urine Occult Blood Urine Nitrate Urine Bilirubin Urine Urobilinogen Ur Leukocyte Esterase Urine WBC Ur Squamous Epith Cells Amorphous Sediment Micro UA Comment Ur Microscopic Review Urine Culture Comments Urine Collection Time Nasal Screen MRSA (PCR) 02/10/18 02/10/18 02/10/18 23:06 22:20 21:16 CBC w Diff WBC RBC Hgb Hct MCV MCH MCHC RDW Plt Count MPV Neut % (Auto) Lymph % (Auto) [place] % (Auto) Eos % (Auto) Baso % (Auto) Neut # (Auto) Lymph # (Auto) [place] # (Auto) Eos # (Auto) Baso # (Auto) WBC Differential Differential Comment Sodium Potassium Chloride Carbon Dioxide Anion Gap BUN Creatinine Estimated GFR POC Glucose 173 H 176 H Random Glucose Lactic Acid Calcium Total Bilirubin AST ALT Alkaline Phosphatase Total Protein Beta-Hydroxybutyric Acd Ur Collection Type Urine Color Urine Clarity Urine pH Ur Specific [place] Urine Protein Urine Glucose (UA) Urine Ketones Urine Occult Blood Urine Nitrate Urine Bilirubin Urine Urobilinogen Ur Leukocyte Esterase Urine WBC Ur Squamous Epith Cells Amorphous Sediment Micro UA Comment Ur Microscopic Review Urine Culture Comments Urine Collection Time Nasal Screen MRSA (PCR) Not detected 02/10/18 02/10/18 02/10/18 20:53 19:56 19:56 CBC w Diff WBC RBC Hgb 14.2 Hct 41.3 MCV MCH MCHC RDW Plt Count MPV Neut % (Auto) Lymph % (Auto) [place] % (Auto) Eos % (Auto) Baso % (Auto) Neut # (Auto) Lymph # (Auto) [place] # (Auto) Eos # (Auto) Baso # (Auto) WBC Differential Differential Comment Sodium Potassium Chloride Carbon Dioxide Anion Gap BUN Creatinine Estimated GFR POC Glucose 145 H Random Glucose Lactic Acid 2.4 H Calcium Total Bilirubin AST ALT Alkaline Phosphatase Total Protein Beta-Hydroxybutyric Acd Ur Collection Type Urine Color Urine Clarity Urine pH Ur Specific [place] Urine Protein Urine Glucose (UA) Urine Ketones Urine Occult Blood Urine Nitrate Urine Bilirubin Urine Urobilinogen Ur Leukocyte Esterase Urine WBC Ur Squamous Epith Cells Amorphous Sediment Micro UA Comment Ur Microscopic Review Urine Culture Comments Urine Collection Time Nasal Screen MRSA (PCR) 02/10/18 02/10/18 02/10/18 19:56 19:49 18:49 CBC w Diff WBC RBC Hgb Hct MCV MCH MCHC RDW Plt Count MPV Neut % (Auto) Lymph % (Auto) [place] % (Auto) Eos % (Auto) Baso % (Auto) Neut # (Auto) Lymph # (Auto) [place] # (Auto) Eos # (Auto) Baso # (Auto) WBC Differential Differential Comment Sodium 140 Potassium 4.2 Chloride 109 H D Carbon Dioxide 20.9 L Anion Gap 10 BUN 20 H Creatinine 1.20 Estimated GFR 72 L POC Glucose 189 H 238 H Random Glucose 187 H D Lactic Acid Calcium 7.9 L Total Bilirubin AST ALT Alkaline Phosphatase Total Protein Beta-Hydroxybutyric Acd Ur Collection Type Urine Color Urine Clarity Urine pH Ur Specific [place] Urine Protein Urine Glucose (UA) Urine Ketones Urine Occult Blood Urine Nitrate Urine Bilirubin Urine Urobilinogen Ur Leukocyte Esterase Urine WBC Ur Squamous Epith Cells Amorphous Sediment Micro UA Comment Ur Microscopic Review Urine Culture Comments Urine Collection Time Nasal Screen MRSA (PCR) 02/10/18 02/10/18 02/10/18 17:44 16:59 16:25 CBC w Diff WBC RBC Hgb Hct MCV MCH MCHC RDW Plt Count MPV Neut % (Auto) Lymph % (Auto) [place] % (Auto) Eos % (Auto) Baso % (Auto) Neut # (Auto) Lymph # (Auto) [place] # (Auto) Eos # (Auto) Baso # (Auto) WBC Differential Differential Comment Sodium Potassium Chloride Carbon Dioxide Anion Gap BUN Creatinine Estimated GFR POC Glucose 265 H 299 H Random Glucose Lactic Acid 4.5 H* Calcium Total Bilirubin AST ALT Alkaline Phosphatase Total Protein Beta-Hydroxybutyric Acd Ur Collection Type Urine Color Urine Clarity Urine pH Ur Specific [place] Urine Protein Urine Glucose (UA) Urine Ketones Urine Occult Blood Urine Nitrate Urine Bilirubin Urine Urobilinogen Ur Leukocyte Esterase Urine WBC Ur Squamous Epith Cells Amorphous Sediment Micro UA Comment Ur Microscopic Review Urine Culture Comments Urine Collection Time Nasal Screen MRSA (PCR) 02/10/18 02/10/18 02/10/18 15:55 14:51 14:48 CBC w Diff WBC RBC Hgb Hct MCV MCH MCHC RDW Plt Count MPV Neut % (Auto) Lymph % (Auto) [place] % (Auto) Eos % (Auto) Baso % (Auto) Neut # (Auto) Lymph # (Auto) [place] # (Auto) Eos # (Auto) Baso # (Auto) WBC Differential Differential Comment Sodium Potassium Chloride Carbon Dioxide Anion Gap BUN Creatinine Estimated GFR POC Glucose 484 H* 433 H Random Glucose Lactic Acid Calcium Total Bilirubin AST ALT Alkaline Phosphatase Total Protein Beta-Hydroxybutyric Acd Ur Collection Type Clean catch Urine Color Straw Urine Clarity Clear Urine pH 6.0 Ur Specific [place] 1.010 Urine Protein Negative Urine Glucose (UA) 1000 or greater H Urine Ketones 80 or greater H Urine Occult Blood Negative Urine Nitrate Negative Urine Bilirubin Negative Urine Urobilinogen 0.2 Ur Leukocyte Esterase Negative Urine WBC 0-5 Ur Squamous Epith Cells 0-5 Amorphous Sediment Few H Micro UA Comment Culture not ind Ur Microscopic Review Microscopic reviewed Urine Culture Comments Culture not ind Urine Collection Time 1450 Nasal Screen MRSA (PCR) 02/10/18 02/10/18 13:45 13:45 CBC w Diff WBC RBC Hgb Hct MCV MCH MCHC RDW Plt Count MPV Neut % (Auto) Lymph % (Auto) [place] % (Auto) Eos % (Auto) Baso % (Auto) Neut # (Auto) Lymph # (Auto) [place] # (Auto) Eos # (Auto) Baso # (Auto) WBC Differential Differential Comment Sodium Potassium Chloride Carbon Dioxide Anion Gap BUN 21 H Creatinine 1.20 Estimated GFR 72 L POC Glucose Random Glucose 424 H Lactic Acid 4.6 H* Calcium Total Bilirubin 0.9 AST 27 ALT 29 Alkaline Phosphatase 87 Total Protein 7.6 Beta-Hydroxybutyric Acd 3.25 H Ur Collection Type Urine Color Urine Clarity Urine pH Ur Specific [place] Urine Protein Urine Glucose (UA) Urine Ketones Urine Occult Blood Urine Nitrate Urine Bilirubin Urine Urobilinogen Ur Leukocyte Esterase Urine WBC Ur Squamous Epith Cells Amorphous Sediment Micro UA Comment Ur Microscopic Review Urine Culture Comments Urine Collection Time Nasal Screen MRSA (PCR) Preliminary micro results at discharge 02/10/18 15:55 Aerobic Blood Culture - Preliminary Blood - Peripheral No growth in 1 day Anaerobic Blood Culture - Preliminary No growth in 1 day 02/10/18 15:50 Aerobic Blood Culture - Preliminary Blood - Peripheral No growth in 1 day Anaerobic Blood Culture - Preliminary No growth in 1 day Impressions ITS Impressions Chest X-Ray 02/10/18 13:51 CONCLUSION: No acute cardiopulmonary process. Abdomen/Pelvis CT 02/10/18 15:02 CONCLUSION: Hepatic steatosis. Discharge Plan Discharge Disposition Patient Disposition: 01 Discharge Home Discharge Condition Condition: Good Discharge Order Discharge Orders: Discharge Order (Routine); Ordered 02/11/18 Ordered By: Sheri Menezes Discharge Details Discharge Comment: home if tolerating diet Physicians Team Primary Care Provider: Primary Care Akanksha Judge Attending Provider: Sheri Menezes Rxs /Orders / Referrals /Forms Prescriptions: Continue gabapentin 600 mg Tablet 1,200 mg PO TID RF: 0 insulin aspart U-100 [Novolog Flexpen U-100 Insulin] 100 unit/mL Insulin Pen 20 unit SUBCUT QAM RF: 0 insulin detemir U-100 [Levemir U-100 Insulin] 100 unit/mL Solution 25 unit SUBCUT QAM RF: 0 insulin detemir U-100 [Levemir U-100 Insulin] 100 unit/mL Solution 25 unit SUBCUT QPM RF: 0 Referrals: Primary Care Akanksha Judge [Primary Care Provider] - See Instructions ( Please call the physician's office to book the appointment to be seen within [2-3 d]. Your Health Problems: Goals to Promote Your Health: To prevent worsening of your condition To maintain your health at the optimal level Directions to Meet Your Goals: Take your medications as prescribed Follow your dietary instruction Follow activity as directed Keep your appointments as scheduled Take your immunizations and boosters as scheduled If your symptoms worsen call your PCP If no PCP go to Urgent Care or Emergency Room Smoking is dangerous to your health. Avoid second hand smoke. You may reach the 24-hour crisis hotline for domestic abuse at .) Discharge Instructions Patient Printed Instructions: Managing Diabetes During Sick Days (DC) Status ED Status: Left Department
[2018-02-11] MEDS ORDERED: Gabapentin 400 MG Capsule PO SCH (18:00)
--- NOTE | 2018-02-11 19:08 | ECG ---
Date Performed: 02/10/2018 Time Performed: 13:59:12 PTAGE: 27 years EKG: Sinus rhythm WITH SINUS ARRHYTHMIA NORMAL ECG PREVIOUS TRACING : 04/23/2014 10.25 Since the previous tracing, no significant change noted DOCTOR: Alec Skaggs Interpretating Date/Time 02/11/2018 19:08:05
--- NOTE | 2018-02-11 19:09 | ECG ---
Date Performed: 02/10/2018 Time Performed: 15:44:21 PTAGE: 27 years EKG: Sinus rhythm NORMAL ECG PREVIOUS TRACING : 02/10/2018 13.59 Since the previous tracing, no significant change noted DOCTOR: Alec Skaggs Interpretating Date/Time 02/11/2018 19:08:18
== END 2018-02-11 15:15 | disposition home or self-care (01) ==
LOC: PHED 13:30 → PHEDA 16:29 → PHICU 18:15
PROVIDERS: ADMIT Internal Medicine; ATTEND Internal Medicine